=== PATIENT | female | born 1955 | race Native Hawaiian/Other Pacific Islander ===

== ENCOUNTER 2019-02-04 20:24 | Emergency (ER) | payer MEDICAID, OTHER ==
[2019-02-04 23:30] LABS: Basophils % (Auto) 0.6 % (0.0-1.8); Eosinophils # (Auto) 0.4 K/mm3 (0.0-0.4); Eosinophils % (Auto) 5.4 % (0.0-4.3); Hematocrit 35.2 % (30.3-42.9); Hemoglobin 11.7 gm/dl (10.1-14.3); Lymphocytes # (Auto) 1.5 K/mm3 (1.2-5.4); Lymphocytes % (Auto) 20.2 % (13.4-35.0); Mean Corpuscular HGB Conc 33 % (30-34); Mean Corpuscular Volume 93 fl (79-97); Monocytes # (Auto) 0.9 K/mm3 (0.0-0.8); Monocytes % (Auto) 11.7 % (0.0-7.3); Platelet Count 113 K/mm3 (140-440); Red Blood Count 3.78 M/mm3 (3.65-5.03); Red Cell Distribution Width 13.4 % (13.2-15.2)
--- NOTE | 2019-02-04 23:33 | Emergency Department Report ---
ED Extremity Problem HPI - General Chief complaint: Extremity Injury, Lower Stated complaint: LOWER BACK PAIN, RT LEG PAIN, SWELLING,PAST DVT Time Seen by Provider: 02/04/19 23:19 Source: patient, EMS Mode of arrival: Stretcher Limitations: No Limitations - History of Present Illness Initial comments: 63-year-old female with history of breast cancer, DVT, PE, chronic back pain, presents to ED with right leg swelling 3 days. Patient has history of back pain with herniated disks. She also takes care of her disabled 26-year-old son at home, having to lift and move him often. Patient re-injured her back approximately 10 days ago, and has been lying in the bed, moving around minimally, trying to ease her back pain. Patient noticed onset of right leg swelling and pain 3 days ago. She reports pain is worse in the right groin and right calf. Patient has history of DVT and PE, and has an IVC filter in place. Not currently on any blood thinners. Patient denies any chest pain or shortness of breath. MD Complaint: extremity pain, extremity swelling -: days(s) (3) Location: right, lower extremity History of Same: Yes Quality: aching Consistency: constant Improves with: nothing Worsens with: walking, palpation Associated Symptoms: denies: chest pain, shortness of breath - Related Data Home Medications Medication Instructions Recorded Confirmed Last Taken Anastrozole (Nf) [Arimidex (Nf)] 1 mg PO DAILY 01/25/14 01/25/14 01/25/14 Previous Rx's Medication Instructions Recorded Last Taken Type Warfarin [Coumadin] 7.5 mg PO DAILY@1700 #7 tablet 01/12/14 01/25/14 Rx levoFLOXacin [Levaquin] 750 mg PO QDAY #10 tablet 01/26/14 Unknown Rx HYDROcodone/APAP 5-325 [[place] 1 - 2 each PO Q6HR PRN #20 tablet 03/19/14 Unknown Rx 5-325 mg TAB] Allergies Allergy/AdvReac Type Severity Reaction Status Date / Time No Known Allergies Allergy Verified 03/19/14 04:26 ED Review of Systems ROS: Stated complaint: LOWER BACK PAIN, RT LEG PAIN, SWELLING,PAST DVT Other details as noted in HPI Comment: All other systems reviewed and negative Constitutional: denies: chills, fever Respiratory: denies: shortness of breath Cardiovascular: denies: chest pain Musculoskeletal: as per HPI ED Past Medical Hx - Past Medical History Previous Medical History?: Yes Hx Hypertension: No Hx Heart Attack/AMI: No Hx Liver Disease: No Hx Renal Disease: No Hx Seizures: No Hx Asthma: No Additional medical history: PE, Thrombosis and Pneumonia. Left breast lumpectomy with radiation - Surgical History Past Surgical History?: Yes Hx Breast Surgery: Yes Additional Surgical History: Hysterectomy, [place] filter - Social History Smoking Status: Never Smoker Substance Use Type: None - Medications Home Medications: Home Medications Medication Instructions Recorded Confirmed Last Taken Type Warfarin [Coumadin] 7.5 mg PO DAILY@1700 #7 tablet 01/12/14 01/25/14 01/25/14 Rx Anastrozole (Nf) [Arimidex (Nf)] 1 mg PO DAILY 01/25/14 01/25/14 01/25/14 History levoFLOXacin [Levaquin] 750 mg PO QDAY #10 tablet 01/26/14 Unknown Rx HYDROcodone/APAP 5-325 [[place] 1 - 2 each PO Q6HR PRN #20 tablet 03/19/14 Unknow n Rx 5-325 mg TAB] ED Physical Exam - General Limitations: No Limitations General appearance: alert, in no apparent distress - Head Head exam: Present: atraumatic, normocephalic - Eye Eye exam: Present: normal appearance - ENT ENT exam: Present: mucous membranes moist - Neck Neck exam: Present: normal inspection - Respiratory Respiratory exam: Present: normal lung sounds bilaterally. Absent: respiratory distress - Cardiovascular Cardiovascular Exam: Present: regular rate, normal rhythm - GI/Abdominal GI/Abdominal exam: Present: soft. Absent: distended, tenderness - Extremities Exam Extremities exam: Present: calf tenderness, other (moderate right knee and lower leg swelling present w/ calf tenderness) - Neurological Exam Neurological exam: Present: alert, oriented X3. Absent: motor sensory deficit - Psychiatric Psychiatric exam: Present: normal affect, normal mood - Skin Skin exam: Present: warm, dry, intact ED Course Vital Signs 02/04/19 02/04/19 02/04/19 20:31 23:24 23:29 Temperature 99.1 F 98.5 F Pulse Rate 93 H 88 Respiratory 18 18 Rate Blood Pressure 97/40 109/58 Blood Pressure [Right] O2 Sat by Pulse 96 100 100 Oximetry 02/04/19 02/04/1919 23:30 23:34 23:46 Temperature Pulse Rate 86 88 Respiratory 25 H 17 23 Rate Blood Pressure 123/48 109/58 Blood Pressure [Right] O2 Sat by Pulse 98 97 Oximetry 02/05/19 02/05/19 02/05/19 00:00 00:15 01:47 Temperature Pulse Rate 92 H 94 H 75 Respiratory 21 23 17 Rate Blood Pressure 106/51 106/51 Blood Pressure 115/60 [Right] O2 Sat by Pulse 96 96 100 Oximetry - Reevaluation(s) Reevaluation #1: 02/04/19 23:52 No criminal records technician here tonight. ED Medical Decision Making - Lab Data Result diagrams: 02/04/19 23:07 02/04/19 23:07 - Medical Decision Making 62-year-old female with right lower leg pain and swelling 3 days. Possible DVT. D-dimer elevated. Patient denies any chest pain or shortness of breath. No criminal records technician available to perform venous Doppler at this time. Patient given 1 dose of Lovenox, along with outpatient order for venous Doppler. Patient advised to call in the morning to get instructions regarding when she should return to the hospital for imaging. - Differential Diagnosis DVT Critical care attestation.: If time is entered above; I have spent that time in minutes in the direct care of this critically ill patient, excluding procedure time. ED Disposition Clinical Impression: Lower extremity pain, right Disposition: DC-01 TO HOME OR SELFCARE Is pt being admited?: No Condition: Stable Instructions: Deep Venous Thrombosis (ED) Referrals: PRIMARY CARE, [Referring] - [facility] Time of Disposition: 00:51
[2019-02-05 00:25] LABS: Alanine Aminotransferase 23 units/L (7-56); Albumin 3.9 g/dL (3.9-5); BUN/Creatinine Ratio 19; Blood Urea Nitrogen 17 mg/dL (7-17); Calcium 8.2 mg/dL (8.4-10.2); Hemolysis Index 11
[2019-02-05 00:35] LABS: INR 1.18 (0.87-1.13); Partial Thromboplastin Time 29.9 Sec. (24.2-36.6)
[2019-02-05] MEDS ORDERED: ENOXAPARIN 100 MG/1 ML INJ SUB-Q ONE (00:48)
[2019-02-05 01:48] VITALS: BP 115/60
== END 2019-02-05 01:48 | disposition home or self-care (01) ==
LOC: ED 20:24
DX: M54.5 Low back pain (principal); M79.661 Pain in right lower leg; G89.29 Other chronic pain; Z79.899 Other long term (current) drug therapy; Z86.711 Personal history of pulmonary embolism; Z86.718 Personal history of other venous thrombosis and embolism; Z90.710 Acquired absence of both cervix and uterus; Z79.02 Long term (current) use of antithrombotics/antiplatelets
CPT/HCPCS: 36415; 80053; 85025; 85379; 85610; 85730; 96372; 99283; J1650

== ENCOUNTER 2019-02-05 12:07 | Emergency (ER) | payer MEDICAID ==
--- NOTE | 2019-02-05 13:06 | XRay Report ---
CHEST 1 VIEW INDICATION / CLINICAL INFORMATION: hypotension. COMPARISON: 01/25/2014 FINDINGS: SUPPORT DEVICES: None. HEART / MEDIASTINUM: No significant abnormality. LUNGS / PLEURA: No significant pulmonary or pleural abnormality. No pneumothorax. ADDITIONAL FINDINGS: No significant additional findings. IMPRESSION: 1. No significant change Signer Name: Maicol Cwoan MD Signed: 02/05/2019 1:02 PM Workstation Name: [id number]
[2019-02-05 13:17] LABS: Basophils % (Auto) 0.6 % (0.0-1.8); Eosinophils # (Auto) 0.4 K/mm3 (0.0-0.4); Eosinophils % (Auto) 5.3 % (0.0-4.3); Hematocrit 34.5 % (30.3-42.9); Hemoglobin 11.5 gm/dl (10.1-14.3); Lymphocytes # (Auto) 1.4 K/mm3 (1.2-5.4); Lymphocytes % (Auto) 17.4 % (13.4-35.0); Mean Corpuscular HGB Conc 33 % (30-34); Mean Corpuscular Volume 92 fl (79-97); Monocytes # (Auto) 0.9 K/mm3 (0.0-0.8); Monocytes % (Auto) 10.9 % (0.0-7.3); Platelet Count 123 K/mm3 (140-440); Red Blood Count 3.73 M/mm3 (3.65-5.03); Red Cell Distribution Width 13.4 % (13.2-15.2)
[2019-02-05 13:24] LABS: Alanine Aminotransferase 22 units/L (7-56); Albumin 3.7 g/dL (3.9-5); BUN/Creatinine Ratio 20; Blood Urea Nitrogen 14 mg/dL (7-17); Calcium 8.1 mg/dL (8.4-10.2); Hemolysis Index 22
--- NOTE | 2019-02-05 14:08 | Cat Scan Report ---
CTA CHEST WITH IV CONTRAST INDICATION: Shortness of breath, history of DVT. TECHNIQUE: Axial CT images were obtained through the chest after injection of 100 mL Omnipaque 350 IV contrast. 3 plane MIP reconstructions were produced. All CT scans at this location are performed using CT dose reduction for ALARA by means of automated exposure control. COMPARISON: CTA chest on 01/26/2014 FINDINGS: Pulmonary Arteries: No pulmonary emboli. Lungs: There is a 17 x 14 mm focus of groundglass opacification in the medial basilar right lower lob e. There are no additional significant pulmonary parenchymal or pleural abnormalities. Trachea and Bronchi: No significant abnormality. Heart and Pericardium: No significant abnormality. Vasculature: No significant abnormality. Lymphatics: No lymphadenopathy. Additional Findings: None. Upper Abdomen: No acute findings. Skeletal Structures: No significant osseous abnormality. IMPRESSION: 1. No CT evidence for pulmonary embolism. 2. A 17 mm focus of groundglass opacity in the medial basilar right lower lobe is noted. This is prob ably a small focus of inflammation or infection. However, given the size, follow-up CT in 6-12 months is recommended to confirm persistence based on most recent Fleischner Society guidelines. Signer Name: Scot Barrera MD Signed: 02/05/2019 2:04 PM Workstation Name: [email or web address]
--- NOTE | 2019-02-05 14:30 | Emergency Department Report ---
<CHARLENE CHRISTIANSON - Last Filed: 02/05/19 14:33> ED General Adult HPI - General Chief complaint: Extremity Injury, Lower Stated complaint: RT LEG VL VENOUS DUPLEX Time Seen by Provider: 02/05/19 12:28 Source: family Mode of arrival: Wheelchair Limitations: Language Barrier - History of Present Illness Initial comments: Patient presents to the emergency department for an ultrasound of her right leg due to right leg swelling and pain that started a couple days ago. Patient was seen here last night and given a Lovenox shot and was told to come back to the ED this morning for ultrasound of the right lower extremity. The patient has a history of DVTs and has a green filter. Patient denies chest pain but does endorse shortness of breath. -: unknown Location: lower extremity Radiation: non-radiation Severity scale (0 -10): 3 Quality: sharp Consistency: constant Improves with: none Worsens with: none Associated Symptoms: denies other symptoms Treatments Prior to Arrival: none - Related Data Home Medications Medication Instructions Recorded Confirmed Last Taken Anastrozole (Nf) [Arimidex (Nf)] 1 mg PO DAILY 01/25/14 01/25/14 01/25/14 Previous Rx's Medication Instructions Recorded Last Taken Type Warfarin [Coumadin] 7.5 mg PO DAILY@1700 #7 tablet 01/12/14 01/25/14 Rx levoFLOXacin [Levaquin] 750 mg PO QDAY #10 tablet 01/26/14 Unknown Rx HYDROcodone/APAP 5-325 [[place] 1 - 2 each PO Q6HR PRN #20 tablet 03/19/14 Unknown Rx 5-325 mg TAB] Apixaban [Eliquis] 5 mg PO BID #30 tablet 02/05/19 Unknown Rx levoFLOXacin [Levaquin] 750 mg PO QDAY #5 tablet 02/05/19 Unknown Rx Allergies Allergy/AdvReac Type Severity Reaction Status Date / Time No Known Allergies Allergy Verified 03/19/14 04:26 ED Review of Systems Comment: All other systems reviewed and negative Constitutional: denies: chills, fever Eyes: denies: eye pain, eye discharge, vision change ENT: denies: ear pain, throat pain Respiratory: shortness of breath. denies: cough, wheezing Cardiovascular: denies: chest pain, palpitations Endocrine: no symptoms reported Gastrointestinal: denies: abdominal pain, nausea, diarrhea Genitourinary: denies: urgency, dysuria, discharge Musculoskeletal: other (right leg pain). denies: back pain, joint swelling, arthralgia Skin: denies: rash, lesions Neurological: denies: headache, weakness, paresthesias Psychiatric: denies: anxiety, depression Hematological/Lymphatic: denies: easy bleeding, easy bruising ED Past Medical Hx - Past Medical History Previous Medical History?: Yes Hx Hypertension: No Hx Heart Attack/AMI: No Hx Liver Disease: No Hx Renal Disease: No Hx Seizures: No Hx Asthma: No Additional medical history: PE, Thrombosis and Pneumonia. Left breast lumpectomy with radiation - Surgical History Past Surgical History?: Yes Hx Breast Surgery: Yes Additional Surgical History: Hysterectomy, [place] filter - Social History Smoking Status: Unknown if ever smoked Substance Use Type: None - Medications Home Medications: Home Medications Medication Instructions Recorded Confirmed Last Taken Type Warfarin [Coumadin] 7.5 mg PO DAILY@1700 #7 tablet 01/12/14 01/25/14 01/25/14 Rx Anastrozole (Nf) [Arimidex (Nf)] 1 mg PO DAILY 01/25/14 01/25/14 01/25/14 History levoFLOXacin [Levaquin] 750 mg PO QDAY #10 tablet 01/26/14 Unknown Rx HYDROcodone/APAP 5-325 [[place] 1 - 2 each PO Q6HR PRN #20 tablet 03/19/14 Unknown Rx 5-325 mg TAB] Apixaban [Eliquis] 5 mg PO BID #30 tablet 02/05/19 Unknown Rx levoFLOXacin [Levaquin] 750 mg PO QDAY #5 tablet 02/05/19 Unknown Rx ED Physical Exam - General Limitations: Language Barrier General appearance: alert, in no apparent distress - Head Head exam: Present: atraumatic, normocephalic - Eye Eye exam: Present: normal appearance, PERRL, EOMI - ENT ENT exam: Present: mucous membranes moist - Neck Neck exam: Present: normal inspection - Respiratory Respiratory exam: Present: normal lung sounds bilaterally. Absent: respiratory distress - Cardiovascular Cardiovascular Exam: Present: regular rate, normal rhythm. Absent: systolic murmur, diastolic murmur, rubs, gallop - GI/Abdominal GI/Abdominal exam: Present: soft, normal bowel sounds. Absent: distended, tenderness - Extremities Exam Extremities exam: Present: other (right leg swollen,tender to touch posteriorly( calf) and erythematous) - Back Exam Back exam: Present: normal inspection - Neurological Exam Neurological exam: Present: alert, oriented X3, CN II-XII intact. Absent: motor sensory deficit - Psychiatric Psychiatric exam: Present: normal affect, normal mood - Skin Skin exam: Present: warm, dry, intact, normal color. Absent: rash ED Medical Decision Making - Lab Data Result diagrams: 02/05/19 12:53 02/05/19 12:53 Lab Results 02/05/19 02/05/19 Range/Units 12:53 12:53 WBC 7.8 (4.5-11.0) K/mm3 RBC 3.73 (3.65-5.03) M/mm3 Hgb 11.5 (10.1-14.3) gm/dl Hct 34.5 (30.3-42.9) % MCV 92 (79-97) fl MCH 31 (28-32) pg MCHC 33 (30-34) % RDW 13.4 (13.2-15.2) % Plt Count 123 L (140-440) K/mm3 Lymph % (Auto) 17.4 (13.4-35.0) % [place] % (Auto) 10.9 H (0.0-7.3) % Eos % (Auto) 5.3 H (0.0-4.3) % Baso % (Auto) 0.6 (0.0-1.8) % Lymph # 1.4 (1.2-5.4) K/mm3 [place] # 0.9 H (0.0-0.8) K/mm3 Eos # 0.4 (0.0-0.4) K/mm3 Baso # 0.0 (0.0-0.1) K/mm3 Seg Neutrophils % 65.8 (40.0-70.0) % Seg Neutrophils # 5.2 (1.8-7.7) K/mm3 Sodium 138 (137-145) mmol/L Potassium 4.0 (3.6-5.0) mmol/L Chloride 103.8 (98-107) mmol/L Carbon Dioxide 25 (22-30) mmol/L Anion Gap 13 mmol/L BUN 14 (7-17) mg/dL Creatinine 0.7 (0.7-1.2) mg/dL Estimated GFR > 60 ml/min BUN/Creatinine Ratio 20 % Glucose 110 H (65-100) mg/dL Calcium 8.1 L (8.4-10.2) mg/dL Total Bilirubin 1.00 (0.1-1.2) mg/dL AST 26 (5-40) units/L ALT 22 (7-56) units/L Alkaline Phosphatase 97 (35-129) units/L Total Protein 6.8 (6.3-8.2) g/dL Albumin 3.7 L (3.9-5) g/dL Albumin/Globulin Ratio 1.2 % - EKG Data -: EKG Interpreted by Ok EKG shows normal: sinus rhythm Rate: normal - Radiology Data Radiology results: report reviewed ED Disposition Clinical Impression: Lower extremity pain, right Pneumonia Qualifiers: Pneumonia type: due to unspecified organism Laterality: unspecified laterality Lung location: unspecified part of lung Qualified Code(s): J18.9 - Pneumonia, unspecified organism DVT (deep venous thrombosis) Qualifiers: DVT location: lower extremity Affected thrombotic vein of extremity: unspecifi ed vein of extremity Chronicity: acute Laterality: right Qualified Code(s): I82.401 - Acute embolism and thrombosis of unspecified deep veins of right lower extremity Disposition: DC- TO HOME OR SELFCARE Is pt being admited?: No Does the pt Need Aspirin: No Condition: Stable Instructions: Deep Venous Thrombosis (ED), Bacterial Pneumonia (ED), Leg Edema (ED) Additional Instructions: Patient to follow-up with primary care in 2-3 days. Patient to follow-up with dye machine operator in 2-3 days. Patient to follow-up with power press supervisor in 2-3 days. Patient to return to ER condition worsens. Patient to rest. Patient to elevate leg. Patient to avoid strenuous exercise until cleared by primary care. Patient take Tylenol when necessary for pain. Prescriptions: Apixaban [Eliquis] 5 mg PO BID #30 tablet levoFLOXacin [Levaquin] 750 mg PO QDAY #5 tablet Referrals: KULWINDER MORLEY MD [Primary Care Provider] - 3-5 Days [facility] [Provider Group] - 3-5 Days [facility] [Provider Group] - 3-5 Days YARON HERNANDEZ MD [Staff Physician] - 3-5 Days <ELIZABETH PERSAUD III - Last Filed: 02/05/19 18:16> ED Review of Systems ROS: Stated complaint: RT LEG VL VENOUS DUPLEX Other details as noted in HPI ED Course Vital Signs 02/05/19 02/05/19 02/05/19 12:27 12:47 13:45 Temperature 98.5 F Pulse Rate 84 86 Respiratory 16 16 16 Rate Blood Pressure 81/57 Blood Pressure 94/58 110/56 [Right] O2 Sat by Pulse 96 97 100 Oximetry 02/05/19 02/05/19 02/05/19 14:34 15:54 18:09 Temperature Pulse Rate 88 95 H 106 H Respiratory 16 16 16 Rate Blood Pressure Blood Pressure 99/53 107/49 147/107 [Right] O2 Sat by Pulse 98 99 97 Oximetry - Reevaluation(s) Reevaluation #1: The patient was signed out to me from the previous ER physician Dr. Christianson. The patient has a Doppler ultrasound pending. 02/05/19 14:58 Reevaluation #2: I discussed all results with patient. Discussed all plan of care with patient. Patient agrees with plan of care. Patient stable for discharge. Patient discharged home. Patient given discharge instructions. Patient voiced understanding of discharge instructions. 02/05/19 17:58 ED Medical Decision Making - Lab Data Result diagrams: 02/05/19 12:53 02/05/19 12:53 - Radiology Data Radiology results: report reviewed DUPLEX DOPPLER LOWER EXTREMITY VEINS, RIGHT INDICATION: leg pain with swelling. TECHNIQUE: Duplex doppler imaging was performed through the veins of the right lower extr emity using venous compression and other maneuvers. COMPARISON: None available. FINDINGS: Common Femoral vein: Occlusive thrombus Superficial Femoral vein: Occlusive thrombus Popliteal vein: Occlusive thrombus Calf veins: Occlusive thrombus Additional findings: None. IMPRESSION: 1. Extensive occlusive DVT throughout the right lower extremity. CTA CHEST WITH IV CONTRAST INDICATION: Shortness of breath, history of DVT. TECHNIQUE: Axial CT images were obtained through the chest after injection of 100 mL Omnipaque 350 IV contrast. 3 plane MIP reconstructions were produced. All CT scans at this location are performed u sing CT dose reduction for ALARA by means of automated exposure control. COMPARISON: CTA chest on 01/26/2014 FINDINGS: Pulmonary Arteries: No pulmonary emboli. Lungs: There is a 17 x 14 mm focus of groundglass opacification in the medial basilar right lower lobe. There are no additional significant pulmonary parenchymal or pleural abnormalities. Trachea and Bronchi: No significant abnormality. Heart and Pericardium: No significant abnormality. Vasculature: No significant abnormality. Lymphatics: No lymphadenopathy. Additional Findings: None. Upper Abdomen: No acute findings. Skeletal Structures: No significant osseous abnormality. IMPRESSION: 1. No CT evidence for pulmonary embolism. 2. A 17 mm focus of groundglass opacity in the medial basilar right lower lobe is noted. This is probably a small focus of inflammation or infection. However, given the size, follow-up CT in 6-12 months is recommended to confirm persistence based on most recent Fleischner Society guidelines. Critical care attestation.: If time is entered above; I have spent that time in minutes in the direct care of this critically ill patient, excluding procedure time. ED Disposition Is pt being admited?: No Does the pt Need Aspirin: No Time of Disposition: 17:52
--- NOTE | 2019-02-05 17:39 | Vascular Lab Report ---
DUPLEX DOPPLER LOWER EXTREMITY VEINS, RIGHT INDICATION: leg pain with swelling. TECHNIQUE: Duplex doppler imaging was performed through the veins of the right lower extremity using venous comp ression and other maneuvers. COMPARISON: None available. FINDINGS: Common Femoral vein: Occlusive thrombus Superficial Femoral vein: Occlusive thrombus Popliteal vein: Occlusive thrombus Calf veins: Occlusive thrombus Additional findings: None. IMPRESSION: 1. Extensive occlusive DVT throughout the right lower extremity. Signer Name: Maicol Cowan MD Signed: 02/05/2019 5:34 PM Workstation Name: [id number]
[2019-02-05 18:14] VITALS: BP 147/107
== END 2019-02-05 18:16 | disposition home or self-care (01) ==
LOC: ED 12:07
DX: I82.401 Acute embolism and thrombosis of unspecified deep veins of right lower extremity (principal); J18.9 Pneumonia, unspecified organism; Z79.02 Long term (current) use of antithrombotics/antiplatelets; Z79.899 Other long term (current) drug therapy; Z90.710 Acquired absence of both cervix and uterus
CPT/HCPCS: 36415; 71045; 71275; 80053; 85025; 93005; 93010; 93971; 99284; Q9967

== ENCOUNTER 2020-11-27 09:19 | Outpatient (CLI) | payer MEDICARE ==
--- NOTE | 2020-11-27 13:55 | Mammography Report ---
DIGITAL SCREENING MAMMOGRAM WITH CAD, 11/27/2020 CLINICAL INFORMATION / INDICATION: Routine screening mammography. SCREENING MAMMO. Personal history o f left breast cancer TECHNIQUE: Digital bilateral 2D mammography was obtained in the craniocaudal and mediolateral obliqu e projections. This examination was interpreted with the benefit of Computer-Aided Detection analysis . COMPARISON: 10/03/2019, 08/02/2018 FINDINGS: Breast Density: There are scattered areas of fibroglandular density. No dominant mass, suspicious calcifications, or architectural distortion in either breast. Postlumpectomy changes on the left are again noted. IMPRESSION: No mammographic evidence of malignancy. Follow up recommendation: Routine yearly BI-RADS Category 2: Benign. A "normal" or negative report should not discourage follow up or biopsy of a clinically significant f inding. A written summary of these findings will be mailed to the patient. The patient will be entered into a mammography reporting system which will generate a reminder letter for the patient's next appointmen t at the appropriate interval. The [employer] recommends yearly mammograms starting at age 40 and continuing as l joe as a woman is in good health. Breast MRI is recommended for women with an approximate 20-25% or greater lifetime risk of breast cancer, including women with a strong family history of breast or ova armond cancer or who have been treated for Hodgkin's disease. Signer Name: Phong Colon MD Signed: 11/27/2020 1:51 PM Workstation Name: [email or web address]
== END 2020-11-27 09:20 | disposition home or self-care (01) ==
LOC: SPVWC 09:19
PROVIDERS: ATTEND Surgery
DX: Z12.31 Encounter for screening mammogram for malignant neoplasm of breast (principal); N64.89 Other specified disorders of breast
CPT/HCPCS: 77067